=== PATIENT | female | born 1995 | race Caucasian/White ===

== ENCOUNTER 2016-08-06 17:59 | Emergency (ER) | payer MEDICAID ==
[~2016-08-06] VITALS: Ht 157.5 cm; Wt 53.7 kg
[2016-08-06 18:14] VITALS: BP 109/66
[2016-08-06 19:23] LABS: BLOOD UREA NITROGEN 7 mg/dL (7-18)
[2016-08-06 19:30] LABS: ASPARTATE AMINO TRANSFERASE 12 U/L (15-37)
== END 2016-08-06 21:16 | disposition home or self-care (01) ==
LOC: ED 21:03
DX: O23.12 Infections of bladder in pregnancy, second trimester (principal); Z3A.20 20 weeks gestation of pregnancy; M54.5 Low back pain
CPT/HCPCS: 36415; 76805; 80053; 81001; 83690; 85025; 86901; 87086; 99285

== ENCOUNTER 2016-09-27 15:54 | Outpatient (CLI) | payer MEDICAID ==
[~2016-09-27] VITALS: Ht 157.5 cm; Wt 56.8 kg
[2016-09-27 16:28] VITALS: BP 97/52
== END 2016-09-27 18:55 | disposition home or self-care (01) ==
LOC: LDOP 15:54
PROVIDERS: ATTEND Obstetrics & Gynecology
DX: O36.8120 Decreased fetal movements, second trimester, not applicable or unspecified (principal); O26.892 Other specified pregnancy related conditions, second trimester; M54.5 Low back pain; Z3A.27 27 weeks gestation of pregnancy
CPT/HCPCS: 59025; 99211; G0463